=== PATIENT | male | born 1960 | race Caucasian/White ===

== ENCOUNTER 2021-01-26 15:08 | Emergency (ER) | payer BC, OTHER ==
--- OUTSIDE RECORDS SUMMARY | 2021-01-26 15:10 | XMS REPORT | Continuity of Care Document ---
:1960 Author Organization [facility] t Address [address] [place] [address] Care Team Providers Name Role Phone Rell Verde MD Attending Clinician Problems This patient has no known problems. Allergies, Adverse Reactions, Alerts This patient has no known allergies or adverse reactions. Medications This patient has no known medications. Procedures This patient has no known procedures. Encounters Start End Encounter Admission Attending Care Care Encounter Source Date/Time Date/Time Type Type Clinicians Facility Department ID 2020-07-27 2020-07-27 Office ALFONZO Verde [id number] 14:13:39 15:19:52 Visit Ghulam Yuen [id number] Bhaskar [id number] Jonathan [id number] nal 092 Building Results This patient has no known results.
[2021-01-26] MEDS ORDERED: HYDROCODONE/APAP 5/325 MG TAB ONE (15:45)
--- NOTE | 2021-01-26 16:24 | ER ---
Nurse's Notes [facility] Name: Ottoniel Casillas Age: 60 yrs Sex: Male : 1960 Arrival Date: 01/26/2021 Time: 15:10 Bed 14 Private MD: Diagnosis: Other sprain of right little finger Presentation: 01/26 15:15 Chief complaint: Patient states: Jammed right pinky finger this morning around 1100, jl7 bruising, swelling and pain worse. Coronavirus screen: Client denies travel out of the [place] in the last 14 days. At this time, the client does not indicate any symptoms associated with coronavirus-19. Ebola Screen: No symptoms or risks identified at this time. Initial Sepsis Screen: Does the patient meet any 2 criteria? No. Patient's initial sepsis screen is negative. Does the patient have a suspected source of infection? No. Patient's initial sepsis screen is negative. Risk Assessment: Do you want to hurt yourself or someone else? Patient reports no desire to harm self or others. Onset of symptoms was January 26, 2021 at 11:00. Care prior to arrival: None. 15:15 Method Of Arrival: Ambulatory jl7 15:15 Acuity: KEVIN 4 jl7 Triage Assessment: 15:17 General: Appears in no apparent distress. uncomfortable, Behavior is cooperative, jl7 anxious. Pain: Complains of pain in right little finger Pain currently is 9 out of 10 on a pain scale. Musculoskeletal: Swelling present in right little finger. Injury Description: Bruise sustained to right little finger. Historical: - Allergies: 15:17 No Known Allergies; jl7 - Home Meds: 15:17 losartan 25 mg oral tab 1 tab once daily [Active]; jl7 - PMHx: 15:17 Hypertension; jl7 - PSHx: 15:17 None; jl7 - Immunization history:: Adult Immunizations up to date, Client reports receiving the 2nd dose of the Covid vaccine, Date received: December 24, 2020. - Social history:: Smoking status: Patient denies any tobacco usage or history of. Screenin:31 Abuse screen: Denies threats or abuse. Denies injuries from another. Nutritional jl7 screening: No deficits noted. Tuberculosis screening: No symptoms or risk factors identified. Fall Risk None identified. Assessment: 15:31 General: See triage assessment. jl7 16:30 Reassessment: Patient appears in no apparent distress at this time. No changes from jl7 previously documented assessment. Patient and/or family updated on plan of care and expected duration. Pain level reassessed. Patient is alert, oriented x 3, equal unlabored respirations, skin warm/dry/pink. Vital Signs: 15:15 BP 133 / 84; Pulse 84; Resp 17; Temp 98.4; Pulse Ox 98% on R/A; Weight 83.91 kg; Height jl7 6 ft. 1 in. (185.42 cm); Pain 9/10; 15:15 Body Mass Index 24.41 (83.91 kg, 185.42 cm) jl7 ED Course: 15:10 Patient arrived in ED. cl3 15:16 Triage completed. jl7 15:17 Arm band placed on right wrist. jl7 15:18 Sebastián Cancino RN is Primary Nurse. jl7 15:19 [facility]C [facility]. kb 15:19 Jh Jama MD is Attending Physician. kb 15:31 Patient has correct armband on for positive identification. Bed in low position. Call jl7 light in reach. Side rails up X 1. 15:31 No provider procedures requiring assistance completed. Patient did not have IV access jl7 during this emergency room visit. 15:37 Ice pack to injury. jl7 15:56 Hand Right 3 View XRAY In Process Unspecified. EDMS 16:30 finger splint to right little finger. jl7 Administered Medications: 15:31 Drug: [place] (HYDROcodone-acetaminophen) 5 mg-325 mg 1 tabs Route: PO; jl7 16:15 Follow up: Response: No adverse reaction; Pain is unchanged, physician notified jl7 Outcome: 16:23 Discharge ordered by . kb 16:30 Discharged to home ambulatory, with significant other. jl7 16:30 Condition: stable 16:30 Discharge instructions given to patient, significant other, Instructed on discharge instructions, follow up and referral plans. medication usage, Demonstrated understanding of instructions, follow-up care, medications, Prescriptions given X 1. 16:32 Patient left the ED. jl7 Signatures: Dispatcher [employer] EDMT Francine Malone FNP-C FNP-Sebastián Amanda RN RN jl7 Lewis, Charde cl3
--- NOTE | 2021-01-26 16:24 | EDPHYS ---
Physician Documentation [facility] Name: Ottoniel Casillas Age: 60 yrs Sex: Male : 1960 Arrival Date: 01/26/2021 Time: 15:10 Bed 14 Private MD: ED Physician Jh Jama HPI: 01/26 15:42 This 60 yrs old Male presents to ER via Ambulatory with complaints of Finger kb Injury. 15:42 The patient or guardian reports decreased range of motion, pain, swelling, tenderness. kb The complaints affect the right little finger. Context: The problem was sustained outdoors, resulted from a direct blow, grocery basket. Onset: The symptoms/episode began/occurred this morning. Modifying factors: The symptoms are alleviated by nothing, the symptoms are aggravated by movement. Associated signs and symptoms: The patient has no apparent associated signs or symptoms. Severity of symptoms: At their worst the symptoms were moderate, in the emergency department the symptoms are unchanged. The patient has not experienced similar symptoms in the past. The patient has not recently seen a physician. Pt reports he was unloading the grocery basket and jammed his finger on the basket. Reports increased pain with any pressure or movement. Historical: - Allergies: 15:17 No Known Allergies; jl7 - Home Meds: 15:17 losartan 25 mg oral tab 1 tab once daily [Active]; jl7 - PMHx: 15:17 Hypertension; jl7 - PSHx: 15:17 None; jl7 - Immunization history:: Adult Immunizations up to date, Client reports receiving the 2nd dose of the Covid vaccine, Date received: December 24, 2020. - Social history:: Smoking status: Patient denies any tobacco usage or history of. ROS: 15:42 Constitutional: Negative for fever, chills, and weight loss, Neuro: Negative for kb headache, weakness, numbness, tingling, and seizure. 15:42 MS/extremity: Positive for injury or acute deformity, decreased range of motion, ecchymosis, pain, swelling, tenderness, of the right little finger. 15:42 Skin: Positive for ecchymosis, swelling, of the right little finger. Exam: 15:42 Constitutional: This is a well developed, well nourished patient who is awake, alert, kb and in no acute distress. Head/Face: Normocephalic, atraumatic. Respiratory: Respirations even and unlabored. No increased work of breathing, no retractions or nasal flaring. Skin: Warm, dry with normal turgor. Normal color. Neuro: Awake and alert, GCS 15, oriented to person, place, time, and situation. Moves all extremities. Normal gait. 15:42 Musculoskeletal/extremity: Extremities: grossly normal except: noted in the right kb little finger: decreased ROM, ecchymosis, pain, swelling, tenderness, ROM: limited active range of motion due to pain, in the right little finger, Circulation is intact in all extremities. Sensation intact. Vital Signs: 15:15 BP 133 / 84; Pulse 84; Resp 17; Temp 98.4; Pulse Ox 98% on R/A; Weight 83.91 kg; Height jl7 6 ft. 1 in. (185.42 cm); Pain 9/10; 15:15 Body Mass Index 24.41 (83.91 kg, 185.42 cm) jl7 Procedures: 16:21 Splinting: Splint applied to right little finger using finger splint, applied by nurse. kb Examined by me, post splint application: neurovascular intact, brisk capillary refill noted, Patient tolerated well. MDM: 15:19 Patient medically screened. kb 15:49 Data reviewed: vital signs, nurses notes. Data interpreted: Pulse oximetry: on room air kb is 98 %. Interpretation: normal. 16:09 Test interpretation: by ED physician or midlevel provider: plain radiologic studies, kb negative for fracture. Counseling: I had a detailed discussion with the patient and/or guardian regarding: the historical points, exam findings, and any diagnostic results supporting the discharge/admit diagnosis, radiology results, the need for outpatient follow up, a orthopedic surgeon, to return to the emergency department if symptoms worsen or persist or if there are any questions or concerns that arise at home. 16:41 Data reviewed: radiologic studies, plain films. kb 01/26 15:21 Order name: Hand Right 3 View XRAY kb 01/26 16:11 Order name: Finger Splint kb Administered Medications: 15:31 Drug: [place] (HYDROcodone-acetaminophen) 5 mg-325 mg 1 tabs Route: PO; jl7 16:15 Follow up: Response: No adverse reaction; Pain is unchanged, physician notified jl7 Disposition: 01/26/21 16:23 Discharged to Home. Impression: Other sprain of right little finger. - Condition is Stable. - Discharge Instructions: Finger Sprain, [id number]. - Prescriptions for Diclofenac Sodium 75 mg Oral Tablet, Delayed Release (E.C.) - take 1 tablet by ORAL route 2 times per day As needed; 30 tablet. - Medication Reconciliation Form, Thank You Letter, Antibiotic Education, Prescription Opioid Use form. - Follow up: Emergency Department; When: As needed; Reason: Worsening of condition. Follow up: Private Physician; When: 2 - 3 days; Reason: Recheck today's complaints, Continuance of care, Re-evaluation by your physician. Addendum: 01/28/2021 09:42 Co-signature as Attending Physician, Jh Jama MD I agree with the assessment and c varghese plan of care. Signatures: Dispatcher [employer] EDMS Francine Malone, CODING DIRECTOR-C CODING DIRECTOR-Jh Oliveros MD MD cha Leal, Jahala, RN RN jl7 Corrections: (The following items were deleted from the chart) 01/26 15:48 15:42 Constitutional: Negative for fever, chills, and weight loss, Respiratory: kb Negative for shortness of breath, cough, wheezing, and pleuritic chest pain, Neuro: Negative for headache, weakness, numbness, tingling, and seizure, kb 15:49 15:42 Constitutional: This is a well developed, well nourished patient who is awake, kb alert, and in no acute distress. Head/Face: Normocephalic, atraumatic. Respiratory: Respirations even and unlabored. No increased work of breathing, no retractions or nasal flaring. kb 15:53 15:42 Constitutional: This is a well developed, well nourished patient who is awake, kb alert, and in no acute distress. Head/Face: Normocephalic, atraumatic. Respiratory: Respirations even and unlabored. No increased work of breathing, no retractions or nasal flaring. Skin: Warm, dry with normal turgor. Normal color. Neuro: Awake and alert, GCS 15, oriented to person, place, time, and situation. Moves all extremities. Normal gait. kb 16:26 16:09 Test interpretation: by ED physician or midlevel provider: plain radiologic kb studies, small avulsion fracture distal phalanx 5th digit right hand, kb 16:32 16:07 All other systems are negative, kb kb 16:32 16:23 01/26/2021 16:23 Discharged to Home. Impression: Other sprain of right little jl7 finger. Condition is Stable. Forms are Medication Reconciliation Form, Thank You Letter, Antibiotic Education, Prescription Opioid Use. Follow up: Emergency Department; When: As needed; Reason: Worsening of condition. Follow up: Private Physician; When: 2 - 3 days; Reason: Recheck today's complaints, Continuance of care, Re-evaluation by your physician. kb
[2021-01-26 16:42] VITALS: BP 133/84; TEMP 98.4; O2SAT 98
--- NOTE | 2021-01-26 17:09 | RAD REPORT ---
EXAM DESCRIPTION: RAD - Hand Right 3 View - 01/26/2021 3:56 pm CLINICAL HISTORY: Pain;Swelling COMPARISON: <Comparisons> FINDINGS: Mild soft tissue swelling is seen affecting the fifth finger. No acute fracture or disloca tion seen.
== END 2021-01-26 16:32 | disposition home or self-care (01) ==
LOC: ER 15:08
DX: S63.616A Unspecified sprain of right little finger, initial encounter (principal); I10 Essential (primary) hypertension; W22.09XA Striking against other stationary object, initial encounter; Y93.89 Activity, other specified
CPT/HCPCS: 99284

== ENCOUNTER 2025-06-19 08:49 | Day surgery (SDC) | payer OTHER ==
[2025-06-16 15:14] LABS: Absolute Lymphocytes (CBC) 0.9 K/uL (0.7-4.9); Hematocrit 46.6 % (39.6-49.0); Hemoglobin 16.1 g/dL (13.6-17.9); MCH 31.2 pg (27.0-35.0); MCHC 34.6 g/dL (32.0-36.0); MCV 90.1 fL (80-100); MPV 7.5 fL (7.6-11.3); Nucleated RBC Absolute Count 0.0 (0-0); Nucleated Red Blood Cells % 0.1 % (0-0); RBC Red Blood Cell Count 5.17 M/uL (4.33-5.43); White Blood Count 5.70 thou/uL (4.3-10.9)
[2025-06-16 15:32] LABS: Anion Gap 9.8 mEq/L (5.0-15.0); BUN Blood Urea Nitrogen 15.0 mg/dL (7-18); Glucose Level 80.0 mg/dL (74-106); Potassium 3.8 mEq/L (3.5-5.1)
--- NOTE | 2025-06-16 16:45 | RAD REPORT ---
Procedure: Chest Pa And Lat (2 Views) HISTORY: Preop. Hypertension COMPARISON: none FINDINGS: The lungs appear clear of acute infiltrate. No significant pleural effusion noted. The heart is normal size. IMPRESSION: No acute abnormality is displayed.
[2025-06-19] MEDS ORDERED: LIDOCAINE 2% MPF 5 ML VIAL ONE (09:05)
[2025-06-19] MEDS ORDERED: FENTANYL CITR 100 MCG/2 ML ONE (09:06)
[2025-06-19] MEDS ORDERED: ROCURONIUM 50 MG/5 ML VIAL IV ONE ×2 (09:06→10:23)
[2025-06-19] MEDS ORDERED: SUGAMMADEX SODIUM 200 MG/2 ML VIAL IV ONE (09:15)
[2025-06-19] MEDS: Ringers Lactate 1,000 ML IV ONE (09:17)
[2025-06-19] MEDS ORDERED: MIDAZOLAM HCL 2 MG/2 ML INJ ONE (09:26)
[2025-06-19] MEDS: CEFAZOLIN SODIUM 1 GM/VIAL ONE (09:57)
[2025-06-19] MEDS ORDERED: MORPHINE 10 MG/ML VIAL ONE (10:25)
[2025-06-19] MEDS ORDERED: Mastisol Adhesive Liq ONE (10:30)
[2025-06-19] MEDS ORDERED: ONDANSETRON 4 MG/2 ML VIAL ONE (10:42)
--- NOTE | 2025-06-19 10:48 | P.BOP ---
Preoperative diagnosis: tender reducible left inguinal hernia Postoperative diagnosis: same Primary procedure: Laparoscopic repair of tender reducible left inguinal hernia with mesh Estimated blood loss: <10cc Specimen: none Findings: LIH Anesthesia: General Complications: None Implants: medium 3D mesh Transferred to: Recovery Room Condition: Good
[2025-06-19] MEDS ORDERED: EPHEDRINE SULF 50 MG/ML VIAL ONE (10:50)
[2025-06-19] MEDS ORDERED: TAMSULOSIN 0.4 MG SR CAP ONE (12:14)
[2025-06-19] MEDS: CODEINE 30MG/APAP 300MG TAB ONE (12:20)
[2025-06-19] MEDS: TAMSULOSIN 0.4 MG SR CAP PO ONE (12:20)
[2025-06-19 13:20] VITALS: BP 150/80; TEMP 97.4; O2SAT 98
--- NOTE | 2025-06-20 23:26 | OP ---
Surgeon: Reji Morel MD Preoperative Diagnosis: Tender reducible left inguinal hernia. Postoperative Diagnosis: Tender reducible left inguinal hernia. Procedure: Laparoscopic repair of tender reducible left inguinal hernia with mesh. Estimated Blood Loss: Less than 10 cc. Specimens: None. Findings: Left inguinal hernia. Anesthesia: General plus local. Implant: Medium 3D mesh with absorbable tackers. Complications: None. Indications: This is a case of a 64-year-old patient comes to us with a tender reducible left inguin al hernia. The benefits, alternatives, and risks of laparoscopic versus open repair with mesh were f ully explained, which include, but not limited to infection, bleeding, damage to adjacent structures, anesthesia complication, chronic pain, chronic numbness, recurrence, MO, and even . He also un derstands this may not relieve symptoms. He might need more than one surgical intervention. The pro s and cons of mesh were discussed with the patient. He signed a consent. Description Of Procedure: The patient was brought to the operating room, placed in supine position. Anesthesia was induced without complication. Time-out was called. Inguinal and abdomen were prepp ed and draped in a sterile fashion. Local anesthetic was applied followed by sharp incision of the s kin in the infraumbilical region. Incision was carried down until we found the anterior rectus sheat h. After that, we found the rectus muscle retracted laterally to expose the posterior rectus sheath. The extraperitoneal space was gently developed with the help of blunt dissection and a balloon tip trocar was placed in that area directed to the pubic pubis symphysis. A laparoscope was then placed in the trocar and the balloon was inflated under direct visualization to create the extraperitoneal s pace. The balloon was then deflated and removed. We insufflated the area once again and then under direct visualization with the scope, a 5 mm trocar was placed at the pubis symphysis, another one efrain fway between the first and the second one. The preperitoneal space was further developed by exposing the inferior epigastric vessels keeping them anterior. Chandu ligament was dissected laterally to a junction with the iliac veins and dissection continued inferiorly to the iliopubic tract avoiding da mage to the femoral branch of the genitofemoral nerve and lateral femoral cutaneous nerve. The cord structures were carefully skeletonized. The hernia was identified, reduced by gentle traction into t he peritoneal cavity. At that moment, I proceeded to place a 3D mesh in the area through the Walter trocar and put it in the working space to cover direct/indirect spaces. The mesh was secured in plac e with absorbable tackers lateral and superior to the iliopubic tract and inferior medial to the Coop er ligament. After ensuring adequate hemostasis, we proceeded then to allow the air to escape while we held the mesh in place. After that, the trocars were removed. The anterior rectus sheath was nasreen sed with #1 Vicryl and the skin in subcuticular fashion with Monocryl. Steri-Strips was placed over the area. The patient tolerated the procedure well. The patient was sent to recovery in stable cond ition. At the end of the case, testicles were within the scrotum. KATT/NIKOLAS Voice ID: [id number] Report ID: [id number]
== END 2025-06-19 13:10 | disposition home or self-care (01) ==
LOC: OR 08:49
PROVIDERS: ATTEND Surgery
PROC: 0YU64JZ Supplement Left Inguinal Region with Synthetic Substitute, Percutaneous Endoscopic Approach (ICD-10-PCS; principal; 2025-06-19 10:30)
DX: K40.90 Unilateral inguinal hernia, without obstruction or gangrene, not specified as recurrent (principal); R10.32 Left lower quadrant pain
CPT/HCPCS: 93005; 85025; 80048; 36415; 71046; 49650; J2704; J1100 ×2; J2003; J2250; J3010; J2405; J7120; J0690; C1781